=== PATIENT | male | born 1985 | race Two or more races ===

== ENCOUNTER 2017-10-18 09:06 | Inpatient (IN) | payer OTHER ==
[~2017-10-18] VITALS: Ht 195.6 cm; Wt 88.5 kg
[~2017-10-18 09:06] MED LIST: BENZONATATE200 M1 PO; OXYC1TAB9 PO; PROTONIX20 MG; RESTORA CAPSUL1 EACH PO; Tussi-Organidin Dm-S PO
[2017-10-18] MEDS ORDERED: DICY10CA (09:25)
[2017-10-18] MEDS ORDERED: PROTONIX20 MG (09:26)
== END 2017-10-21 16:38 | disposition home or self-care (01) | DRG 390 ==
LOC: ER 09:06 → SURH 18:51
PROC: BW21Y0Z Computerized Tomography (CT Scan) of Abdomen and Pelvis using Other Contrast, Unenhanced and Enhanced (ICD-10-PCS; principal; 2017-10-18)
DX: K56.690 Other partial intestinal obstruction (principal); K52.89 Other specified noninfective gastroenteritis and colitis; E86.0 Dehydration

== ENCOUNTER 2017-11-04 23:48 | Emergency (ER) | payer OTHER ==
[~2017-11-04] VITALS: Ht 195.6 cm; Wt 81.6 kg
[~2017-11-04 23:48] MED LIST changes: +DICY10CA
== END 2017-11-05 12:15 | disposition home or self-care (01) ==
LOC: ER 23:48
DX: R10.31 Right lower quadrant pain (principal); M62.830 Muscle spasm of back; M54.89 Other dorsalgia

== ENCOUNTER 2017-11-15 12:00 | Day surgery (SDC) | payer OTHER | END 2017-11-15 17:15 | disposition home or self-care (01) | LOC: AMB-ENDOS 12:00 | DX: K64.8 Other hemorrhoids (principal); K63.89 Other specified diseases of intestine; R14.0 Abdominal distension (gaseous); K56.1 Intussusception; R19.4 Change in bowel habit; K58.0 Irritable bowel syndrome with diarrhea ==